=== PATIENT | female | born 1990 | race Caucasian/White ===

== ENCOUNTER 2020-08-05 19:23 | Emergency (ER) | payer MEDICAID ==
[2020-08-05 19:41] VITALS: BP 125/88; PULSE 135
--- NOTE | 2020-08-05 19:41 | EDM.PDOC ---
ED HPI GENERAL MEDICAL PROBLEM - General Chief Complaint: Abdominal Pain Stated Complaint: SHARP STOMACH PAIN Time Seen by Provider: 08/05/20 19:40 Source of Information: Reports: Patient, RN, RN Notes Reviewed History Limitations: Reports: No Limitations - History of Present Illness INITIAL COMMENTS - FREE TEXT/NARRATIVE: Patient is a 30 year old female who presents to ER with c/o epigastric pain (sharp) that wraps around the RUQ and LUQ. Patient states the pain comes and goes, and is sharp in nature. Patient state the pain began about 2 days ago and she has been having nausea, vomiting, and some diarrhea. She denies nausea at this time. She states the diarrhea is "oily". Patient states she has had her gallbladder removed. Patient admits to chest pains earlier today, but none at this time. Denies SOB, admits to chills and unsure about fever. Patient states she is taking control, but unsure of . She states her LMP was about 4 weeks ago, and is due to have her menses soon. She does have 4 living children at home. Patient states she has been unable to keep food or liquids down. Denies history of pancreatitis. States she has had kidney infections in t he past. Denies frequency, urgency, burning with urination. Patient states very minimal alcohol use, states she does smoke marijuana from time to time to help her sleep, and denies any other drug use. Onset: Sudden Onset Date: 08/03/20 Duration: Waxing/Waning Location: Reports: Abdomen Quality: Reports: Sharp Severity: Moderate Improves with: Reports: None Worsens with: Reports: None Associated Symptoms: Reports: Chest Pain, Fever/Chills, Loss of Appetite, Nausea/Vomiting Epigastric Pain Score (Numeric/FACES): 4 - Related Data Allergies Allergy/AdvReac Type Severity Reaction Status Date / Time celecoxib [From Celebrex] Allergy Hives Verified 08/05/20 19:28 Penicillins Allergy Hives Verified 08/05/20 19:28 Home Meds: Home Meds . [Unable to Verify Home Med List] 08/05/20 [History] Past Medical History - Past Health History Medical/Surgical History: Denies Medical/Surgical History Gastrointestinal History: Reports: None - Infectious Disease History Infectious Disease History: Reports: None - Past Surgical History Head Surgeries/Procedures: Reports: None Other HEENT Surgeries/Procedures: wisdom teeth GI Surgical History: Reports: Cholecystectomy, ERCP Dermatological Surgical History: Reports: None Social & Family History - Family History Hematologic: Reports: None - Caffeine Use Caffeine Use: Reports: Soda ED ROS GENERAL - Review of Systems Review Of Systems: Comprehensive ROS is negative, except as noted in HPI. ED EXAM, GI/ABD - Physical Exam Exam: See Below Exam Limited By: No Limitations General Appearance: Alert, WD/WN, No Apparent Distress, Cachetic Eyes: Bilateral: Normal Appearance, EOMI Ears: Normal External Exam, Hearing Grossly Normal Nose: Normal Inspection Throat/Mouth: Normal Inspection, Normal Voice, No Airway Compromise Head: Atraumatic, Normocephalic Neck: Normal Inspection, Supple, Non-Tender, Full Range of Motion Respiratory/Chest: No Respiratory Distress, Lungs Clear, Normal Breath Sounds, No Accessory Muscle Use, Chest Non-Tender Cardiovascular: Normal Peripheral Pulses, Regular Rate, Rhythm, No Edema, No Gallop, No JVD, No Murmur, No Rub GI/Abdominal Exam: Normal Bowel Sounds, Soft, Tender (epigastric, RUQ, LUQ) (Female) Exam: Deferred Rectal (Female) Exam: Deferred Back Exam: Normal Inspection, Full Range of Motion, NT Extremities: Normal Inspection, Normal Range of Motion, Non-Tender, Normal Capillary Refill, No Pedal Edema Neurological: Alert, Oriented, CN II-XII Intact, Normal Cognition, Normal Gait, Normal Reflexes, No Motor/Sensory Deficits Psychiatric: Normal Affect, Normal Mood Skin Exam: Warm, Dry, Intact, No Rash, Pallor Lymphatic: No Adenopathy Course - Vital Signs Last Recorded V/S: Last Vital Signs Temp 98.9 F 08/05/20 19:28 Pulse 135 H 08/05/20 19:28 Resp 18 08/05/20 19:28 BP 125/88 08/05/20 19:28 Pulse Ox 99 08/05/20 19:28 - Orders/Labs/Meds Orders: Active Orders 24 hr Category Date Time Status Potassium Chloride [KCL in Water 20 MEQ/100 ML] 20 meq Med 08/05/20 20:21 Acti ve Premix Bag 1 bag IV ONETIME Medication Orders Potassium Chloride 20 meq/ (Premix) 100 mls @ 50 mls/hr IV ONETIME ONE Stop: 02/11/21 22:20 Last Infusion: 08/05/20 22:03 Dose: 75 mls/hr Documented by: Infusion: 08/05/20 21:07 Dose: 75 mls/hr Documented by: Admin: 08/05/20 20:26 Dose: 50 mls/hr Documented by: DARIAN Labs: Laboratory Tests 08/05/20 08/05/20 08/05/20 Range/Units 19:32 19:32 19:40 WBC 12.8 H (5.0-10.0) 10^3/uL RBC 4.74 (4.2-5.4) 10^6/uL Hgb 14.0 D (12.0-16.0) g/dL Hct 41.2 (37.0-47.0) % MCV 86.9 (80-100) fL MCH 29.5 (27.0-34.0) pg MCHC 34.0 (33.0-35.0) g/dL Plt Count 258 D (150-450) 10^3/uL Neut % (Auto) 69.5 (42.2-75.2) % Lymph % (Auto) 23.7 (20.5-50.1) % [place] % (Auto) 5.7 (2-8) % Eos % (Auto) 0.9 L (1.0-3.0) % Baso % (Auto) 0.2 (0.0-1.0) % Sodium 137 (136-145) mmol/L Potassium 2.8 L (3.5-5.1) mmol/L Chloride 100 (98-107) mmol/L Carbon Dioxide 27 (21-32) mmol/L Anion Gap 12.8 (7-13) mEq/L BUN 9 (7-18) mg/dL Creatinine 0.72 (0.55-1.02) mg/dL Est Cr Clr Drug Dosing 120.48 mL/min Estimated GFR (MDRD) > 60 BUN/Creatinine Ratio 12.5 (No establ ref range) Glucose 121 H (74-99) mg/dL Calcium 8.4 L (8.5-10.1) mg/dL Total Bilirubin 0.7 (0.2-1.0) mg/dL AST 13 L (15-37) U/L ALT 18 (14-59) U/L Alkaline Phosphatase 57 (46-116) U/L C-Reactive Protein 1.1 H (0.0-0.9) mg/dL Total Protein 7.4 (6.4-8.2) g/dL Albumin 3.6 (3.4-5.0) g/dL Globulin 3.8 Albumin/Globulin Ratio 0.9 Amylase 33 (25-115) U/L Lipase 60 L (73-393) U/L Urine Color Dark yellow (YELLOW) Urine Appearance Slightly cloudy (CLEAR) Urine pH 6.0 (5.0-9.0) Ur Specific [place] >= 1.030 (1.005-1.030) Urine Protein Negative (NEGATIVE) Urine Glucose (UA) Negative (NEGATIVE) Urine Ketones 80 H (NEGATIVE) Urine Occult Blood Negative (NEGATIVE) Urine Nitrite Negative (NEGATIVE) Urine Bilirubin Small H (NEGATIVE) Urine Urobilinogen 0.2 (0.2-1.0) mg/dL Ur Leukocyte Esterase Negative (NEGATIVE) Urine HCG, Qual 08/05/20 Range/Units 19:40 WBC (5.0-10.0) 10^3/uL RBC (4.2-5.4) 10^6/uL Hgb (12.0-16.0) g/dL Hct (37.0-47.0) % MCV (80-100) fL MCH (27.0-34.0) pg MCHC (33.0-35.0) g/dL Plt Count (150-450) 10^3/uL Neut % (Auto) (42.2-75.2) % Lymph % (Auto) (20.5-50.1) % [place] % (Auto) (2-8) % Eos % (Auto) (1.0-3.0) % Baso % (Auto) (0.0-1.0) % Sodium (136-145) mmol/L Potassium (3.5-5.1) mmol/L Chloride (98-107) mmol/L Carbon Dioxide (21-32) mmol/L Anion Gap (7-13) mEq/L BUN (7-18) mg/dL Creatinine (0.55-1.02) mg/dL Est Cr Clr Drug Dosing mL/min Estimated GFR (MDRD) BUN/Creatinine Ratio (No establ ref range) Glucose (74-99) mg/dL Calcium (8.5-10.1) mg/dL Total Bilirubin (0.2-1.0) mg/dL AST (15-37) U/L ALT (14-59) U/L Alkaline Phosphatase (46-116) U/L C-Reactive Protein (0.0-0.9) mg/dL Total Protein (6.4-8.2) g/dL Albumin (3.4-5.0) g/dL Globulin Albumin/Globulin Ratio Amylase (25-115) U/L Lipase (73-393) U/L Urine Color (YELLOW) Urine Appearance (CLEAR) Urine pH (5.0-9.0) Ur Specific [place] (1.005-1.030) Urine Protein (NEGATIVE) Urine Glucose (UA) (NEGATIVE) Urine Ketones (NEGATIVE) Urine Occult Blood (NEGATIVE) Urine Nitrite (NEGATIVE) Urine Bilirubin (NEGATIVE) Urine Urobilinogen (0.2-1.0) mg/dL Ur Leukocyte Esterase (NEGATIVE) Urine HCG, Qual Negative Meds: Medications Generic Name Dose Route Start Last Admin Trade Name Freq PRN Reason Stop Dose Admin Potassium Chloride 20 meq/ 100 mls @ 50 mls/hr 08/05/20 20:21 08/05/20 22:03 Premix IV 08/05/20 22:20 Infused ONETIME ONE Infusion Discontinued Medications Generic Name Dose Route Start Last Admin Trade Name Freq PRN Reason Stop Dose Admin Sodium Chloride 1,000 mls @ 999 mls/hr 08/05/20 20:21 08/05/20 22:03 Normal Saline IV 08/05/20 21:21 999 mls/hr .BOLUS ONE Infusion - Re-Assessments/Exams Free Text/Narrative Re-Assessment/Exam: 08/05/20 22:04 Patient states she is feeling better. Rates pain 07/04. Departure - Departure Time of Disposition: 22:08 Disposition: Home, Self-Care 01 Condition: Good Clinical Impression: Gastroenteritis, Hypokalemia Abdominal pain Qualifiers: Abdominal location: epigastric Qualified Code(s): R10.13 - Epigastric pain - Discharge Information *PRESCRIPTION DRUG MONITORING PROGRAM REVIEWED*: No *COPY OF PRESCRIPTION DRUG MONITORING REPORT IN PATIENT SERAFIN: No Instructions: Abdominal Pain, Adult, [id number], Viral Gastroenteritis, Adult, [id number], Food Choices to Help Relieve Diarrhea, Adult, Diarrhea, Adult, [id number], Hypokalemia Forms: ED Department Discharge Additional Instructions: RX: Potassium Chloride Follow up with your primary care facility within the next 2 weeks to have potassium rechecked Drink plenty of fluids Return to ER if no improvement Sepsis Event Note (ED) - Focused Exam Vital Signs: Vital Signs Temp Pulse Resp BP Pulse Ox 08/05/20 19:28 98.9 F 135 H 18 125/88 99 - My Orders Last 24 Hours: My Active Orders 08/05/20 20:21 Potassium Chloride [KCL in Water 20 MEQ/100 ML] 20 meq Premix Bag 1 bag IV ONETIME - Assessment/Plan Last 24 Hours: My Active Orders 08/05/20 20:21 Potassium Chloride [KCL in Water 20 MEQ/100 ML] 20 meq Premix Bag 1 bag IV ONETIME
[2020-08-05 20:09] LABS: ANION GAP 12.8 mEq/L (7-13); CHLORIDE,CL 100 mmol/L (98-107); SODIUM,NA 137 mmol/L (136-145)
[2020-08-05] MEDS ORDERED: Sodium Chloride 0.9% 1,000 ML IV ONE (20:21)
[2020-08-05] MEDS ORDERED: Potassium Chloride 20 MEQ in Premix Bag 1 BAG IV ONE (20:21)
== END 2020-08-05 22:40 | disposition home or self-care (01) ==
LOC: DL.ED 19:23
DX: K52.9 Noninfective gastroenteritis and colitis, unspecified (principal); E87.6 Hypokalemia; R10.13 Epigastric pain; Z88.8 Allergy status to other drugs, medicaments and biological substances; Z88.0 Allergy status to penicillin
CPT/HCPCS: 36415; 80053; 81003; 81025; 82150; 83690; 85025; 86140; 96365; 96366; 99284; J3480; J7030; 99283

== ENCOUNTER 2021-06-01 16:32 | Emergency (ER) | payer MEDICAID ==
--- NOTE | 2021-06-01 18:45 | EDM.PDOC ---
Scribed by Carlota Plasencia 06/01/21 1838 for Cecilio De León MD ED HPI GENERAL MEDICAL PROBLEM - General Chief Complaint: Lower Extremity Injury/Pain Stated Complaint: RIGHT LEG BEHIND THE KNEE, POSSIBLE BLOOD CLOUGHT Time Seen by Provider: 06/01/21 17:34 Source of Information: Reports: Patient, RN, RN Notes Reviewed History Limitations: Reports: No Limitations - History of Present Illness INITIAL COMMENTS - FREE TEXT/NARRATIVE: Patient presents to ED by POV from [facility]. She had a sore sport on the back of her knee and was seen at the clinic by Dr. Pineda. He thought she might have a blood clot. Onset: Gradual Duration: Getting Worse Location: Reports: Lower Extremity, Right Quality: Reports: Ache Severity: Severe Improves with: Reports: None Worsens with: Reports: None Associated Symptoms: Reports: No Other Symptoms - Related Data Allergies Allergy/AdvReac Type Severity Reaction Status Date / Time celecoxib [From Celebrex] Allergy Hives Verified 08/05/20 19:28 Penicillins Allergy Hives Verified 08/05/20 19:28 Home Meds: Home Meds . [Unable to Verify Home Med List] 08/05/20 [History] Past Medical History - Past Health History Medical/Surgical History: Denies Medical/Surgical History Gastrointestinal History: Reports: None Genitourinary History: Reports: Pyelonephritis - Infectious Disease History Infectious Disease History: Reports: None - Past Surgical History Head Surgeries/Procedures: Reports: None HEENT Surgical History: Reports: Tonsillectomy Other HEENT Surgeries/Procedures: wisdom teeth GI Surgical History: Reports: Cholecystectomy, ERCP Dermatological Surgical History: Reports: None Social & Family History - Family History Hematologic: Reports: None - Caffeine Use Caffeine Use: Reports: None - Living Situation & Occupation Living situation: Reports: with Family Review of Systems - Review of Systems Review Of Systems: Comprehensive ROS is negative, except as noted in HPI. ED EXAM, GENERAL - Physical Exam Exam: See Below Exam Limited By: No Limitations General Appearance: Alert, WD/WN, No Apparent Distress Nose: Normal Inspection Throat/Mouth: Normal Inspection Head: Atraumatic, Normocephalic Neck: Normal Inspection Respiratory/Chest: No Respiratory Distress Cardiovascular: Normal Peripheral Pulses Peripheral Pulses: 3+: Posterior Tibial (L), Posterior Tibial (R), Dorsalis Pedis (L), Dorsalis Pedis (R) GI/Abdominal: Normal Bowel Sounds, Soft, Non-Tender, Other (Gravid abd. heart tones 153) (Female) Exam: Deferred Back Exam: Normal Inspection Extremities: No Pedal Edema, Normal Capillary Refill, Other (Posterior right knee with a patch of spider veins, and a tender firm varicosity.). No: Joint Swelling, Kelsey's Sign, Increased Warmth, Mottled, Pallor, Redness Neurological: No Motor/Sensory Deficits Psychiatric: Normal Affect, Normal Mood Skin Exam: Warm, Dry, Intact Course - Orders/Labs/Meds Orders: Active Orders 24 hr Category Date Time Status Heart Tones [RC] ASDIRECTED Care 06/01/21 17:35 Active Venous Doppler Lwr Ext Rt [US] Stat Exams 06/01/21 17:34 Ordered - Radiology Interpretation Free Text/Narrative:: RLE Venous Doppler US Tech report: no DVT, superficial thrombophlebitis per tech report. Departure - Departure Time of Disposition: 18:36 Disposition: Home, Self-Care 01 Condition: Good Clinical Impression: Thrombophlebitis of right lower extremity - Discharge Information *PRESCRIPTION DRUG MONITORING PROGRAM REVIEWED*: Not Applicable *COPY OF PRESCRIPTION DRUG MONITORING REPORT IN PATIENT SERAFIN: Not Applicable Instructions: Thrombophlebitis Forms: ED Department Discharge Additional Instructions: Moist hot pack to affected area of right leg. Rest and elevate the right leg. Call Dr. Pineda in the morning (06/02/21) and ask him to look at the ultrasound report for your leg. - My Orders Last 24 Hours: My Active Orders 06/01/21 17:34 Venous Doppler Lwr Ext Rt [US] Stat 06/01/21 17:35 Heart Tones [RC] ASDIRECTED - Assessment/Plan Last 24 Hours: My Active Orders 06/01/21 17:34 Venous Doppler Lwr Ext Rt [US] Stat 06/01/21 17:35 Heart Tones [RC] ASDIRECTED I have read and agree with the documentation that has been completed regarding this visit. By signing this record, I attest that the documentation was completed in my physical presence and is an accurate record of the encounter.
--- NOTE | 2021-06-01 18:52 | US ---
PROCEDURE INFORMATION: Exam: US Duplex Right Lower Extremity Veins, Limited Exam date and time: 06/01/2021 5:52 PM Age: 31 years old Clinical indication: Pain; Leg, lower; Right; Additional info: RT posterior leg pain, TECHNIQUE: Imaging protocol: Real-time Duplex ultrasound of the Right Lower Extremity with 2-D hernández scale, color Doppler flow and spectral waveform analysis with image documentation. Limited exam was focused on the right lower extremity veins. COMPARISON: No relevant prior studies available. FINDINGS: Right deep veins: Unremarkable. The common femoral, femoral, proximal profunda femoral and popliteal veins are patent without thrombus. Normal Doppler waveforms. Normal compressibility and/or augmentation response. Right superficial veins: There is a thrombus in a posterior knee superficial vein Soft tissues: Unremarkable. IMPRESSION: No evidence of deep vein thrombosis. Superficial right calf venous thrombosis
[2021-06-01 19:17] VITALS: BP 119/62; PULSE 72
== END 2021-06-01 19:08 | disposition home or self-care (01) ==
LOC: DL.ED 16:32
DX: I80.01 Phlebitis and thrombophlebitis of superficial vessels of right lower extremity (principal); Z88.1 Allergy status to other antibiotic agents; Z88.0 Allergy status to penicillin
CPT/HCPCS: 93971; 99283-25

== ENCOUNTER 2021-07-28 09:08 | Inpatient (IN) | payer MEDICAID ==
[2021-07-28] MEDS ORDERED: Ondansetron 4 MG/2 ML SDV IVPUSH PRN (11:08)
[2021-07-28] MEDS ORDERED: Carboprost Tromethamine 250 MCG/1 ML Amp IM PRN (11:08)
[2021-07-28] MEDS ORDERED: Tranexamic Acid 1,000 MG in Sodium Chloride 0.9% 100 ML IV PRN (11:08)
[2021-07-28] MEDS ORDERED: Acetaminophen 325 MG Tab PO PRN (11:08)
[2021-07-28] MEDS ORDERED: Lactated Ringers 1,000 ML IV ONE (11:08)
[2021-07-28] MEDS ORDERED: Sodium Chloride 0.9% 10 ML Syringe FLUSH PRN ×2 (11:08→14:44)
[2021-07-28] MEDS ORDERED: Lidocaine 1% 30 ML SDV INJECT PRN (11:08)
[2021-07-28] MEDS ORDERED: Methylergonovine 0.2 MG/1 ML Amp IM PRN (11:08)
[2021-07-28] MEDS ORDERED: Misoprostol 400 MCG (4 X 100 MCG TAB) RECTAL PRN (11:08)
[2021-07-28] MEDS ORDERED: Oxytocin/Normal Saline 30 UNIT/500 ML BAG IV SCH (11:15)
[2021-07-28] MEDS ORDERED: FLU VAC QS 21-22(6MS UP)CEL/PF 60 MCG/0.5 ML SYRINGE IM ONE (12:30)
[2021-07-28] MEDS ORDERED: EPINEPHrine 1 MG/ML SDV ONE ×2 (13:12→13:13)
[2021-07-28] MEDS ORDERED: fentaNYL 100 MCG/2 ML SDV ONE (13:12)
[2021-07-28] MEDS ORDERED: fentaNYL 100 MCG/2 ML SDV ITHECAL ONE (13:13)
[2021-07-28] MEDS ORDERED: Sodium Bicarbonate 4.2% 2.5 MEQ/5 ML SDV ONE ×2 (13:13)
[2021-07-28] MEDS ORDERED: Sodium Chloride 0.9% 20 ML SDV ONE (13:13)
[2021-07-28] MEDS: Lactated Ringers 1,000 ML IV SCH ×2 (13:27→13:50)
[2021-07-28] MEDS ORDERED: Benzocaine/Menthol 20%-0.5% Spray 78 GM Cannister TOP PRN (14:44)
[2021-07-28] MEDS ORDERED: Simethicone 80 MG Tab.Chew PO PRN (14:44)
[2021-07-28] MEDS ORDERED: Oxytocin 10 Units/1 ML SDV IM PRN (14:44)
[2021-07-28] MEDS ORDERED: Promethazine 25 MG/ML SDV IM PRN (14:51)
[2021-07-28] MEDS ORDERED: Famotidine 20 MG/2 ML SDV IVPUSH PRN (14:52)
[2021-07-28] MEDS: Ibuprofen 800 MG Tab PO PRN (20:10)
[2021-07-28] MEDS: Docusate Sodium 100 MG Cap PO PRN (20:10)
[2021-07-28] MEDS ORDERED: Zolpidem 5 MG Tab PO PRN (21:00)
[2021-07-29] MEDS: Ibuprofen 800 MG Tab PO PRN (07:56)
[2021-07-29] MEDS: Docusate Sodium 100 MG Cap PO PRN (07:56)
[2021-07-29] MEDS: Prenatal Multivitamin with Calcium/Folic Acid/Iron Tab PO SCH ×2 (07:56→10:46)
[2021-07-29 08:59] VITALS: BP 107/50; PULSE 72
[2021-07-29] MEDS ORDERED: FLU VAC QS 21-22(6MS UP)CEL/PF 60 MCG/0.5 ML SYRINGE IM ONE (16:00)
== END 2021-07-29 17:30 | disposition home or self-care (01) | DRG 806 ==
LOC: DL.OBCHECK 09:08 → DL.OB 11:18 → OBSVTOIN 14:34 → DL.MS 07-29 08:57
PROVIDERS: ADMIT Family Medicine; ATTEND Family Medicine
PROC: 10E0XZZ Delivery of Products of Conception, External Approach (ICD-10-PCS; principal; 2021-07-28)
PROC: 10907ZC Drainage of Amniotic Fluid, Therapeutic from Products of Conception, Via Natural or Artificial Opening (ICD-10-PCS; 2021-07-28)
PROC: 3E0R3BZ Introduction of Anesthetic Agent into Spinal Canal, Percutaneous Approach (ICD-10-PCS; 2021-07-28)
PROC: 00HU33Z Insertion of Infusion Device into Spinal Canal, Percutaneous Approach (ICD-10-PCS; 2021-07-28)
DX: O62.3 Precipitate labor (principal); D62 Acute posthemorrhagic anemia; Z37.0 Single live birth; O99.02 Anemia complicating childbirth; Z3A.38 38 weeks gestation of pregnancy; Z20.822 Contact with and (suspected) exposure to COVID-19
CPT/HCPCS: 36415; 59409; 85027; A9270-GY; J0171; J2405; J2550; J2590; J3010; J3490; J7120; U0002

== ENCOUNTER 2024-09-28 03:53 | Inpatient (IN) | payer BC, MEDICAID ==
[2024-09-28] MEDS: ceFAZolin 2 GM Vial IVPUSH ONE (04:18)
[2024-09-28] MEDS: Lactated Ringers 1,000 ML IV SCH ×2 (04:18→05:20)
[2024-09-28] MEDS: Oxytocin/Normal Saline 30 UNIT/500 ML BAG IV SCH (04:33)
[2024-09-28] MEDS ORDERED: Sodium Chloride 0.9% 100 ML ONE (05:18)
[2024-09-28] MEDS ORDERED: Phenylephrine 1% 10 MG/ML SDV ONE (05:18)
[2024-09-28 05:19] LABS: BASOPHILS PERCENT AUTO 0.5 % (0.0-1.0); EOSINOPHILS PERCENT AUTO 0.8 % (1.0-3.0); HEMATOCRIT 38.9 % (37.0-47.0); HEMOGLOBIN 12.9 g/dL (12.0-16.0); LYMPHOCYTES PERCENT AUTO 14.7 % (20.5-50.1); MEAN CORPUSCULAR HEMOGLOBIN 29.3 pg (27.0-34.0); MEAN CORPUSCULAR HGB CONC 33.2 g/dL (33.0-35.0); MEAN CORPUSCULAR VOLUME 88.2 fL (80-100); MONOCYTES PERCENT AUTO 0.5 % (2-8); NEUTROPHILS PERCENT AUTO 83.5 % (42.2-75.2); PLATELET COUNT,PLT 145 10^3/uL (150-450); RED BLOOD CELL COUNT 4.41 10^6/uL (4.2-5.4); WHITE BLOOD CELL COUNT,WBC 8.7 10^3/uL (5.0-10.0)
[2024-09-28] MEDS: Misoprostol 100 MCG Tab RECTAL PRN (05:21)
[2024-09-28] MEDS: Methylergonovine 0.2 MG/1 ML Amp ONE (05:34)
[2024-09-28] MEDS: Tranexamic Acid 1,000 MG in Sodium Chloride 0.9% 100 ML IV PRN (05:41)
[2024-09-28] MEDS: Carboprost Tromethamine 250 MCG/1 ML Amp ONE (05:45)
[2024-09-28] MEDS: Carboprost Tromethamine 250 MCG/1 ML Amp IM ONE ×2 (05:45→09:23)
[2024-09-28] MEDS: cefTRIAXone 1 GM Vial IVPUSH ONE (06:06)
[2024-09-28] MEDS ORDERED: Sodium Chloride 0.9% 10 ML Syringe FLUSH PRN (06:40)
[2024-09-28] MEDS ORDERED: Oxytocin 10 Units/1 ML SDV IM PRN (06:40)
[2024-09-28] MEDS ORDERED: Simethicone 80 MG Tab.Chew PO PRN (06:40)
[2024-09-28 07:09] LABS: HEMATOCRIT 32.6 % (37.0-47.0); HEMOGLOBIN 10.8 g/dL (12.0-16.0); MEAN CORPUSCULAR HEMOGLOBIN 29.5 pg (27.0-34.0); MEAN CORPUSCULAR HGB CONC 33.1 g/dL (33.0-35.0); MEAN CORPUSCULAR VOLUME 89.1 fL (80-100); PLATELET COUNT,PLT 121 10^3/uL (150-450); RED BLOOD CELL COUNT 3.66 10^6/uL (4.2-5.4); WHITE BLOOD CELL COUNT,WBC 29.6 10^3/uL (5.0-10.0)
[2024-09-28 07:12] LABS: BASOPHILS PERCENT AUTO 0.2 % (0.0-1.0); EOSINOPHILS PERCENT AUTO 0.1 % (1.0-3.0); LYMPHOCYTES PERCENT AUTO 2.7 % (20.5-50.1); MONOCYTES PERCENT AUTO 5.8 % (2-8); NEUTROPHILS PERCENT AUTO 91.2 % (42.2-75.2)
[2024-09-28 07:32] LABS: ANION GAP 15.4 mEq/L (7-13); BLOOD UREA NITROGEN,BUN 10 mg/dL (7-18); CALCIUM 6.9 mg/dL (8.5-10.1); CARBON DIOXIDE,CO2 21 mmol/L (21-32); CHLORIDE,CL 110 mmol/L (98-107); CREATININE 0.52 mg/dL (0.55-1.02); GLUCOSE RANDOM 89 mg/dL (70-99); POTASSIUM,K 3.4 mmol/L (3.5-5.1); SODIUM,NA 143 mmol/L (136-145)
[2024-09-28 07:33] LABS: ESTIMATED GFR 126 mL/min (>=60)
[2024-09-28 07:34] LABS: INR 1.2 (0.9-1.2); PROTHROMBIN TIME 12.6 SEC (9.0-12.0); PTT,PARTIAL THROMBOPLSTIN TIME 28.1 SEC (22.0-34.0)
[2024-09-28 07:38] LABS: BAND PERCENT MAN 11 %; LYMPHOCYTES PERCENT MAN 1 % (20-50); MONOCYTES PERCENT MAN 2 % (2-8); SEG NEUTROPHILS PERCENT MAN 85 % (42-75)
[2024-09-28] MEDS: Acetaminophen 325 MG Tab PO PRN (07:49)
[2024-09-28] MEDS: Calcium Gluconate 10% 1 GM/10 ML SDV IVPUSH ONE (09:02)
[2024-09-28] MEDS: Ondansetron 4 MG/2 ML SDV ONE (09:24)
[2024-09-28] MEDS: ePHEDrine 50 MG/ML SDV ONE (09:24)
[2024-09-28] MEDS: Ampicillin 500 MG Vial ONE (09:36)
[2024-09-28] MEDS: Prenatal Multivitamin with Calcium/Folic Acid/Iron Tab PO SCH (09:47)
[2024-09-28] MEDS: Methylergonovine 0.2 MG/1 ML Amp IM ONE (09:47)
[2024-09-28] MEDS: Ferrous Sulfate 325 MG Tab PO SCH (09:47)
[2024-09-28] MEDS: Methylergonovine 0.2 MG/1 ML Amp IM STA (10:32)
[2024-09-28 11:26] LABS: HEMATOCRIT 30.9 % (37.0-47.0); HEMOGLOBIN 10.4 g/dL (12.0-16.0); MEAN CORPUSCULAR HEMOGLOBIN 29.3 pg (27.0-34.0); MEAN CORPUSCULAR HGB CONC 33.7 g/dL (33.0-35.0); RED BLOOD CELL COUNT 3.55 10^6/uL (4.2-5.4); WHITE BLOOD CELL COUNT,WBC 33.2 10^3/uL (5.0-10.0)
[2024-09-28 11:44] LABS: INR 1.1 (0.9-1.2); PROTHROMBIN TIME 11.6 SEC (9.0-12.0); PTT,PARTIAL THROMBOPLSTIN TIME 27.4 SEC (22.0-34.0)
[2024-09-28 17:06] LABS: HEMATOCRIT 27.8 % (37.0-47.0); HEMOGLOBIN 9.3 g/dL (12.0-16.0); MEAN CORPUSCULAR HEMOGLOBIN 28.9 pg (27.0-34.0); MEAN CORPUSCULAR HGB CONC 33.5 g/dL (33.0-35.0); MEAN CORPUSCULAR VOLUME 86.3 fL (80-100); RED BLOOD CELL COUNT 3.22 10^6/uL (4.2-5.4); WHITE BLOOD CELL COUNT,WBC 29.4 10^3/uL (5.0-10.0)
[2024-09-28 17:23] LABS: INR 1.1 (0.9-1.2); PTT,PARTIAL THROMBOPLSTIN TIME 28.5 SEC (22.0-34.0)
[2024-09-28] MEDS: Witch Hazel Medicated Pads 100/Jar TOP PRN (21:35)
[2024-09-28] MEDS: Benzocaine/Menthol 20%-0.5% Spray 78 GM Cannister TOP PRN (21:35)
[2024-09-29 06:27] LABS: HEMATOCRIT 26.5 % (37.0-47.0); HEMOGLOBIN 8.7 g/dL (12.0-16.0); MEAN CORPUSCULAR HGB CONC 32.8 g/dL (33.0-35.0); MEAN CORPUSCULAR VOLUME 88.3 fL (80-100); PLATELET COUNT,PLT 135 10^3/uL (150-450); WHITE BLOOD CELL COUNT,WBC 23.4 10^3/uL (5.0-10.0)
[2024-09-29 06:59] LABS: LYMPHOCYTES PERCENT MAN 6 % (20-50); MONOCYTES PERCENT MAN 6 % (2-8); SEG NEUTROPHILS PERCENT MAN 88 % (42-75)
[2024-09-29] MEDS: Docusate Sodium 100 MG Cap PO PRN (08:36)
[2024-09-29] MEDS: cefTRIAXone 1 GM Vial IVPUSH ONE (08:36)
[2024-09-29] MEDS: Ibuprofen 800 MG Tab PO SCH (10:55)
[2024-09-30 06:30] LABS: HEMATOCRIT 28.7 % (37.0-47.0); HEMOGLOBIN 9.3 g/dL (12.0-16.0); MEAN CORPUSCULAR HEMOGLOBIN 29.2 pg (27.0-34.0); MEAN CORPUSCULAR HGB CONC 32.4 g/dL (33.0-35.0); MEAN CORPUSCULAR VOLUME 90.3 fL (80-100); RED BLOOD CELL COUNT 3.18 10^6/uL (4.2-5.4); WHITE BLOOD CELL COUNT,WBC 15.8 10^3/uL (5.0-10.0)
[2024-09-30 09:36] VITALS: BP 114/70; PULSE 95
== END 2024-09-30 09:30 | disposition home or self-care (01) | DRG 560 ==
LOC: DL.OBCHECK 03:53 → DL.OB 04:27
PROVIDERS: ADMIT Family Medicine; ATTEND Family Medicine
PROC: 10E0XZZ Delivery of Products of Conception, External Approach (ICD-10-PCS; principal; 2024-09-28)
PROC: 3E0R3BZ Introduction of Anesthetic Agent into Spinal Canal, Percutaneous Approach (ICD-10-PCS; 2024-09-28)
PROC: 00HU33Z Insertion of Infusion Device into Spinal Canal, Percutaneous Approach (ICD-10-PCS; 2024-09-28)
PROC: 30233K1 Transfusion of Nonautologous Frozen Plasma into Peripheral Vein, Percutaneous Approach (ICD-10-PCS; 2024-09-28)
PROC: 30233N1 Transfusion of Nonautologous Red Blood Cells into Peripheral Vein, Percutaneous Approach (ICD-10-PCS; 2024-09-28)
DX: O42.013 Preterm premature rupture of membranes, onset of labor within 24 hours of rupture, third trimester (principal); Z37.0 Single live birth; Z3A.35 35 weeks gestation of pregnancy; O60.14X0 Preterm labor third trimester with preterm delivery third trimester, not applicable or unspecified; O45.8X3 Other premature separation of placenta, third trimester; N93.9 Abnormal uterine and vaginal bleeding, unspecified; O72.2 Delayed and secondary postpartum hemorrhage; D72.829 Elevated white blood cell count, unspecified; O99.13 Other diseases of the blood and blood-forming organs and certain disorders involving the immune mechanism complicating the puerperium
CPT/HCPCS: 00940; 36415; 36430; 51702; 59409; 80048; 85007; 85025; 85027; 85379; 85384; 85610; 85730; 86850; 86900; 86901; 86920; 86922; A9270-GY; J0612; J0690; J0696; J2210; J2590; J3490; J7120; P9016; P9017

== ENCOUNTER 2025-02-22 22:47 | Emergency (ER) | payer BC ==
[2025-02-22 23:24] VITALS: BP 126/78; PULSE 138
== END 2025-02-23 00:29 | disposition home or self-care (01) ==
LOC: DL.ED 22:47
DX: B85.0 Pediculosis due to Pediculus humanus capitis (principal); L50.0 Allergic urticaria; Z88.0 Allergy status to penicillin; Z88.8 Allergy status to other drugs, medicaments and biological substances; Z79.899 Other long term (current) drug therapy; Z90.49 Acquired absence of other specified parts of digestive tract
CPT/HCPCS: 99283; Q0163; 99284